=== PATIENT | female | born 1965 | race Caucasian/White ===

== ENCOUNTER 2020-05-25 11:34 | Outpatient (REF) | payer MEDICARE, MEDICAID, SELFPAY ==
[2020-05-25 13:50] LABS: Anion Gap 15 (12-20); Blood Urea Nitrogen 15 mg/dL (9-16); Calcium 9.5 mg/dL (8.4-10.2); Carbon Dioxide 29 mmol/L (22-29); Chloride 102 mmol/L (96-108); Estimated Glomerular Filt Rate > 60; Glucose Random 79 mg/dL (60-115); Potassium 4.9 mmol/l (3.3-5.1); Sodium 141 mmol/L (135-145); Uric Acid 3.5 mg/dL (2.4-5.7)
[2020-05-25 13:53] LABS: Rheumatoid Factor < 15.0 IU/mL (<15.0)
[2020-05-25 14:06] LABS: Syphilis Screen Nonreactive (Nonreactive)
[2020-05-27 10:47] LABS: IgA 224 mg/dL (47-310); IgG 800 mg/dL (600-1640); IgM 190 mg/dL (50-300)
== END 2020-05-25 11:35 | disposition home or self-care (01) ==
LOC: HO.LAB 11:34
PROVIDERS: PCP Pediatrics; Visit Provider Psychiatry & Neurology Neurology
DX: M79.2 Neuralgia and neuritis, unspecified (principal)
CPT/HCPCS: 36415; 80048; 82784; 84550; 86334; 86431; 86618; 86780

== ENCOUNTER 2020-11-18 11:17 | Outpatient (REF) | payer MEDICARE, MEDICAID, SELFPAY ==
--- NOTE | ~2020-11-18 | XR_ITS ---
EXAMINATION: XR FOOT, RIGHT CLINICAL INFORMATION: Pain COMPARISON: None TECHNIQUE: AP, lateral, and oblique views of the right foot. FINDINGS: No acute fracture or dislocation. Small marginal osteophytes of the first metatarsophalangeal joint. Alignment is anatomic. Type I os navicularis. XR/XR foot RT 2V IMPRESSION: No acute findings. Mild first metatarsophalangeal joint arthrosis.
[2020-11-18 13:12] LABS: MANUAL DIFF FLAG NO
[2020-11-18 13:28] LABS: Basophils Percent Auto 0.5 % (0-2); Eosinophils Absolute Auto 0.2 X10*3/uL (0.0-0.4); Hematocrit 46.7 % (37-47); Hemoglobin 14.8 g/dl (12.0-16.0); Imm Gran Abs Auto 0.05 X10*3/uL (0.00-0.03); Imm Gran Pct Auto 0.6 % (0.0-0.4); Lymphocytes Absolute Auto 1.9 X10*3/uL (1.2-4.9); Lymphocytes Percent Auto 22.1 % (20-40); Mean Corpuscular HGB Conc 31.7 g/dl (31.0-35.0); Mean Corpuscular Hemoglobin 30.2 pg (27.0-33.0); Mean Corpuscular Volume 95.3 fL (80-98); Monocytes Absolute Auto 0.8 X10*3/uL (0.1-1.2); Monocytes Percent Auto 9.4 % (2-11); Neutrophils Absolute Auto 5.7 X10*3/uL (2.0-8.3); Neutrophils Percent Auto 65.4 % (45-73); Platelet Count 349 X10*3/uL (160-400); Red Cell Distribution Width 15.9 % (11.0-16.0); White Blood Count 8.7 X10*3/uL (4.8-10.8)
[2020-11-18 13:44] LABS: Alanine Aminotransferase 7 U/L (0-31); Albumin Level 4.1 g/dL (3.5-5.0); Alkaline Phosphatase 119 U/L (39-117); Anion Gap 10 (12-20); Aspartate Amino Transferase 16 U/L (5-31); Bilirubin Total 0.3 mg/dL (0.0-1.0); Blood Urea Nitrogen 14 mg/dL (9-16); Calcium 9.6 mg/dL (8.4-10.2); Carbon Dioxide 35 mmol/L (22-29); Chloride 104 mmol/L (96-108); Estimated Glomerular Filt Rate > 60; Glucose Random 65 mg/dL (60-115); Potassium 5.1 mmol/L (3.3-5.1); Sodium 144 mmol/L (135-145); Total Protein 6.7 g/dL (6.5-8.0)
[2020-11-18 14:38] LABS: Erythrocyte Sedimentation Rate 16 MM/HR (0-20)
[2020-11-19 16:27] LABS: Cyclic Citrullinated Peptide <16 UNITS
== END 2020-11-18 11:18 | disposition home or self-care (01) ==
LOC: HO.LAB 11:17
PROVIDERS: PCP Pediatrics; Visit Provider Student in an Organized Health Care Education/Training Program
DX: M25.50 Pain in unspecified joint (principal); M79.7 Fibromyalgia; F20.9 Schizophrenia, unspecified; F17.210 Nicotine dependence, cigarettes, uncomplicated; Z88.6 Allergy status to analgesic agent; Z88.8 Allergy status to other drugs, medicaments and biological substances; Z79.899 Other long term (current) drug therapy
CPT/HCPCS: 36415; 73620; 80053; 85025; 85652; 86140; 86200; 99202

== ENCOUNTER → 2020-12-15 10:39 | Outpatient (BNVA) | payer MEDICARE, MEDICAID, SELFPAY | PROVIDERS: Visit Provider Student in an Organized Health Care Education/Training Program | DX: M25.50 Pain in unspecified joint (principal); F17.200 Nicotine dependence, unspecified, uncomplicated; Z71.6 Tobacco abuse counseling | CPT/HCPCS: 99212 ==